=== PATIENT | male | born 1995 | race Two or more races ===

== ENCOUNTER 2025-03-16 07:34 | Emergency (ER) | payer OTHER ==
[~2025-03-16] VITALS: Ht 185.4 cm; Wt 90.7 kg
[2025-03-16] MEDS ORDERED: ADDERALL XR 2020 MG PO (08:17)
[2025-03-16] MEDS ORDERED: ADDERALL 15 MG15 MG PO (08:17)
[2025-03-16] MEDS ORDERED: AVIDOXY100 MG PO (08:47)
[2025-03-16] MEDS ORDERED: PEPCID AC20 MG PO (08:47)
[2025-03-16] MEDS ORDERED: TETANUS & DIPHTHERIA TOX,ADULT 0.5 ML VIAL IM ONE (09:00)
[2025-03-16] MEDS ORDERED: CEFTRIAXONE SODIUM 1,000 MG VIAL IM ONE (09:00)
[2025-03-16] MEDS ORDERED: KETOROLAC TROMETHAMINE 60 MG VIAL IM ONE ×2 (09:00→09:36)
[2025-03-16] MEDS ORDERED: CEFTRIAXONE SODIUM 1,000 MG VIAL ONE (09:36)
[2025-03-16] MEDS ORDERED: DIPHTH,PERTUSS(ACELL),TET VAC 0.5 ML SYRINGE IM ONE (09:36)
== END 2025-03-16 10:04 | disposition home or self-care (01) ==
LOC: ER 07:34
DX: S81.851A Open bite, right lower leg, initial encounter (principal); W54.0XXA Bitten by dog, initial encounter; Y93.89 Activity, other specified; Y92.89 Other specified places as the place of occurrence of the external cause; Y99.8 Other external cause status; Z88.7 Allergy status to serum and vaccine
CPT/HCPCS: 90471; 90714; J1670

== ENCOUNTER → 2025-03-18 | Emergency (ER) | payer OTHER ==
[~2025-03-18] VITALS: Ht 185.4 cm; Wt 86.2 kg
[~2025-03-18] MED LIST: ADDERALL 15 MG15 MG PO; ADDERALL XR 2020 MG PO; AVIDOXY100 MG PO; CEFTRIAXONE SODIUM 1,000 MG VIAL IM ONE; CEFTRIAXONE SODIUM 1,000 MG VIAL ONE; FAMOTIDINE/PF 20 MG/2 ML VIAL ONE; FAMOtidine 10 MG/ML (4ML VIAL) IV PUSH ONE; PEPCID AC20 MG PO
[2025-03-18 14:30] LABS: BASO % 0.2 % (0.1-1.2); EOS # 0.05 (0.04-0.54); EOS % 0.6 % (0.7-7.0); HEMATOCRIT 40.4 % (40.1-51.0); HEMOGLOBIN 13.9 g/dL (13.7-17.5); LYMPH # 1.38 (1.18-3.74); LYMPH % 15.7 % (19.3-53.1); MEAN CORPUSCULAR HEMOGLOBIN 29.7 pg (25.6-32.2); MONO # 0.66 (0.24-0.82); MONO % 7.5 % (4.7-12.5); NEUT # 6.64 (1.56-6.13); NEUT % 75.5 % (34.0-71.1); PLATELET COUNT 213 K/uL (163-369); RED BLOOD COUNT 4.68 M/uL (4.63-6.08); RED CELL DISTRIBUTION WIDTH 12.6 % (11.6-14.4)
[2025-03-18 14:43] LABS: COVID-19 AG NEGATIVE (NEGATIVE); INFLUENZA A AG NEGATIVE (NEGATIVE); INFLUENZA B AG NEGATIVE (NEGATIVE)
[2025-03-18 14:46] LABS: ERYTHROCYTE SEDIMENTATION RATE 7 mm/hr (0-15)
== END | disposition home or self-care (01) ==
LOC: ER 11:16
PROVIDERS: General Practice
DX: R68.83 Chills (without fever) (principal); S80.811A Abrasion, right lower leg, initial encounter; W54.0XXA Bitten by dog, initial encounter; Y93.89 Activity, other specified; Y92.89 Other specified places as the place of occurrence of the external cause; Y99.9 Unspecified external cause status; Z88.8 Allergy status to other drugs, medicaments and biological substances; Z20.822 Contact with and (suspected) exposure to COVID-19